=== PATIENT | male | born 1965 | race Two or more races ===

== ENCOUNTER → 2021-02-08 | Day surgery (SDC) | payer OTHER ==
[~2021-02-08] MED LIST: VALSARTAN-HCTZ1 EACH PO
== END | disposition home or self-care (01) ==
LOC: ADM 01-28 08:30 → CIR.AMB 06:57
PROVIDERS: ATTEND Orthopaedic Surgery Sports Medicine
DX: S83.242A Other tear of medial meniscus, current injury, left knee, initial encounter (principal); Z20.822 Contact with and (suspected) exposure to COVID-19

== ENCOUNTER 2024-01-13 10:09 | Outpatient (CLI) | payer OTHER | END 2024-01-13 10:10 | disposition home or self-care (01) | LOC: NUCLEAR 10:09 | DX: I63.9 Cerebral infarction, unspecified (principal); I65.29 Occlusion and stenosis of unspecified carotid artery ==